=== PATIENT | male | born 1970 | race Caucasian/White ===

== ENCOUNTER 2016-06-29 06:51 | Emergency (ER) | payer MEDICAID ==
[~2016-06-29] VITALS: Ht 180.3 cm; Wt 86.0 kg
[2016-06-29 07:18] VITALS: BP 133/99
== END 2016-06-29 07:59 | disposition home or self-care (01) ==
LOC: ER 07:33
DX: H11.31 Conjunctival hemorrhage, right eye (principal); H11.151 Pinguecula, right eye; I10 Essential (primary) hypertension; R51 Headache; E78.5 Hyperlipidemia, unspecified
CPT/HCPCS: 99283

== ENCOUNTER 2017-09-14 17:17 | Emergency (ER) | payer MEDICAID ==
[~2017-09-14] VITALS: Ht 180.3 cm; Wt 87.0 kg
[2017-09-14] MEDS ORDERED: IBUPROFEN 600MG TABLET PO ONE (20:15)
[2017-09-14] MEDS ORDERED: LIDOCAINE HCL 1% 20ML VIAL (Pyxis) INJ INFIL ONE (20:15)
[2017-09-14] MEDS ORDERED: POVIDONE-IODINE 10% TOPICAL SOLN 240ML TOP ONE (20:15)
[2017-09-14 21:45] VITALS: BP 134/90
== END 2017-09-14 22:16 | disposition home or self-care (01) ==
LOC: ER 18:48
DX: L60.0 Ingrowing nail (principal)
CPT/HCPCS: 11730; 99283; A4246; J3490; Z7610